=== PATIENT | female | born 1940 | race Caucasian/White ===

== ENCOUNTER 2016-08-22 19:19 | Inpatient (IN) | payer OTHER, MEDICAID ==
[~2016-08-22] VITALS: Ht 152.4 cm; Wt 82.2 kg
[2016-08-22 20:55] LABS: BASOPHIL % 0.3 % (0-2); PLATELET COUNT 210 x10^3mcL (130-400)
[2016-08-22 20:58] LABS: RED CELL DISTRIBUTION WIDTH 16.2 % (11.5-14.5)
[2016-08-22 21:05] LABS: CALCIUM 8.9 mg/dL (8.5-10.1); CARBON DIOXIDE 26.9 mmol/L (21-32); CHLORIDE SERUM 106 mmol/L (98-107); CREATININE SERUM 1.3 mg/dL (0.6-1.0); GLUCOSE SERUM 102 mg/dL (74-106); POTASSIUM SERUM 4.2 mmol/L (3.5-5.1); SODIUM SERUM 141 mmol/L (136-145)
[2016-08-22 21:14] LABS: ALKALINE PHOSPHATASE 92 U/L (46-116); ALT/SGPT 37 U/L (14-59); AST/SGOT 21 U/L (15-37); BILIRUBIN TOTAL 0.37 mg/dL (0.20-1.00)
[2016-08-22 21:20] LABS: ALBUMIN 3.1 g/dL (3.4-5.0)
[2016-08-22 21:47] LABS: CK-MB 1.5 ng/mL (0-3.6)
[2016-08-23] VITALS (8 sets, daily range): BP systolic 107–144; BP diastolic 51–84
[2016-08-23 02:28] LABS: PHOSPHOROUS 3.4 mg/dL (2.5-4.9)
[2016-08-23 02:39] LABS: T3 TOTAL 1.27 ng/mL
[2016-08-23 02:40] LABS: CHOLESTEROL/HDL RATIO 5.9
[2016-08-23 02:43] LABS: FREE T4 1.01 ng/dL (0.76-1.46); FREE THYROXINE INDEX 2.3 ug/dL (1.4-4.5); T4(THYROXINE) 7.7 ug/dL (4.7-13.3)
[2016-08-23 06:27] LABS: microscopic required? NO
[2016-08-23 07:39] LABS: AMPHETAMINE QUAL UR NONE DETECTED (NEG <=1000)
[2016-08-23 08:46] LABS: UA SPECIFIC GRAVITY <=1.005 (1.005-1.035); urine erythrocyte NEGATIVE (NEGATIVE)
[2016-08-24 06:28] VITALS: BP 121/78
[2016-08-24 06:29] LABS: CALCIUM 8.1 mg/dL (8.5-10.1); CHLORIDE SERUM 113 mmol/L (98-107); CREATININE SERUM 1.2 mg/dL (0.6-1.0); GLUCOSE SERUM 96 mg/dL (74-106); MAGNESIUM 1.8 mg/dL (1.8-2.4); PHOSPHOROUS 4.1 mg/dL (2.5-4.9); SODIUM SERUM 147 mmol/L (136-145)
[2016-08-24 07:06] LABS: BASOPHIL % 0.4 % (0-2); PLATELET COUNT 183 x10^3mcL (130-400); RED CELL DISTRIBUTION WIDTH 16.1 % (11.5-14.5)
[2016-08-24 08:57] VITALS: BP 114/52
[2016-08-24 13:27] VITALS: BP 125/59
[2016-08-24 17:47] VITALS: BP 127/60
[2016-08-24 21:19] VITALS: BP 143/77
[2016-08-25 05:45] VITALS: BP 113/53
[2016-08-25 06:36] LABS: BASOPHIL % 1.9 % (0-2); PLATELET COUNT 185 x10^3mcL (130-400)
[2016-08-25 06:39] LABS: RED CELL DISTRIBUTION WIDTH 15.1 % (11.5-14.5)
[2016-08-25 06:48] LABS: CALCIUM 8.5 mg/dL (8.5-10.1); CARBON DIOXIDE 24.4 mmol/L (21-32); CHLORIDE SERUM 113 mmol/L (98-107); CREATININE SERUM 1.1 mg/dL (0.6-1.0); GLUCOSE SERUM 93 mg/dL (74-106); MAGNESIUM 1.8 mg/dL (1.8-2.4); PHOSPHOROUS 3.8 mg/dL (2.5-4.9); POTASSIUM SERUM 4.3 mmol/L (3.5-5.1); SODIUM SERUM 146 mmol/L (136-145)
[2016-08-25 09:22] VITALS: BP 109/64
[2016-08-25] MEDS ORDERED: LIPI10 PO (11:45)
[2016-08-25] MEDS ORDERED: ECO81 PO (11:47)
[2016-08-25] MEDS ORDERED: XARELTO15 M1 PO (11:49)
[2016-08-25 13:57] VITALS: BP 127/64
[2016-08-25 15:27] VITALS: BP 127/64
== END 2016-08-25 16:40 | disposition home or self-care (01) | DRG 175 ==
LOC: ED 19:19 → DU 08-23 01:36
PROVIDERS: Emergency Medicine; ADMIT Family Medicine
DX: I26.99 Other pulmonary embolism without acute cor pulmonale (principal); N17.0 Acute kidney failure with tubular necrosis; J96.00 Acute respiratory failure, unspecified whether with hypoxia or hypercapnia; E44.0 Moderate protein-calorie malnutrition; E87.0 Hyperosmolality and hypernatremia; J98.11 Atelectasis; D68.69 Other thrombophilia; E11.65 Type 2 diabetes mellitus with hyperglycemia; E11.51 Type 2 diabetes mellitus with diabetic peripheral angiopathy without gangrene; E78.5 Hyperlipidemia, unspecified; D64.9 Anemia, unspecified; I27.2 Other secondary pulmonary hypertension; Z68.35 Body mass index [BMI] 35.0-35.9, adult
CPT/HCPCS: 36600; 80307; 83880; 84439; 85378; J1644; J7030; J7040; J7613; J7620; J7626; J7644; Q0092; Q9967